=== PATIENT | female | born 1990 | race Caucasian/White ===

== ENCOUNTER 2023-07-04 07:41 | Day surgery (SDC) | payer OTHER ==
[~2023-07-04] VITALS: Ht 167.6 cm; Wt 88.9 kg
[~2023-07-04 07:41] MED LIST: ALL10TAB3 PO; CALC500C16 PO; LIDOCAINE 2% 100MG/5ML SDV (FOR ANES.) As Ordered ONE; MIDAZOLAM INJ 2MG/2ML VIAL As Ordered ONE; MULTTAB20 PO; ONDANSETRON 4MG 2ML VIAL As Ordered ONE; VIT1TAB.8 PO; ZYRTTAB8 PO; ceFAZolin SOD 2 GM in IV 1 EA IV ONE; fentaNYL 100 MCG/2 ML INJECTION As Ordered ONE; propofoL 200 MG/20 ML VIAL As Ordered ONE
[2023-07-04] MEDS ORDERED: LR 1,000 ML IV SCH ×2 (08:15→10:20)
[2023-07-04] MEDS ORDERED: propofoL 200 MG/20 ML VIAL As Ordered ONE (09:17)
[2023-07-04] MEDS ORDERED: ACETAMINOPHEN 1000MG 100ML IV BAG As Ordered ONE (09:23)
[2023-07-04] MEDS ORDERED: ISOVUE-300 61% 100ML VIAL As Ordered ONE ×2 (09:26→09:27)
[2023-07-04] MEDS ORDERED: oxyCODONE 5MG TAB PO PRN (10:20)
[2023-07-04] MEDS ORDERED: ONDANSETRON 4MG 2ML VIAL IV PRN (10:20)
[2023-07-04] MEDS ORDERED: fentaNYL 100 MCG/2 ML INJECTION IV PRN (10:20)
[2023-07-04] MEDS ORDERED: HYDROMORPHONE HCL 0.5 MG/ 0.5 ML SYRINGE IV PRN (10:20)
[2023-07-04] MEDS ORDERED: MACR100C43 PO (10:47)
[2023-07-04 10:54] VITALS: BP 132/87; TEMP 98.3; O2SAT 96
== END 2023-07-04 11:42 | disposition home or self-care (01) ==
LOC: M SDC 07:41
PROVIDERS: ATTEND Urology
DX: N20.1 Calculus of ureter (principal); Z88.2 Allergy status to sulfonamides
CPT/HCPCS: 52005; 76000; 81025; J0131; J1100; J2250; J2405; J3010; Q9967